=== PATIENT | male | born 1980 | race African-American/Black ===

== ENCOUNTER 2021-08-02 04:36 | Emergency (ER) | payer OTHER, SELFPAY ==
[2021-08-02] MEDS ORDERED: Aspirin Chewable 81 MG TAB ONE ×2 (04:57→04:58)
[2021-08-02 05:10] LABS: ALT (SGPT) 37 U/L (8-55); AST (SGOT) 24 U/L (5-34); Albumin 4.4 g/dL (3.5-5.0); Alkaline Phosphatase 64 U/L (40-110); Anion Gap 12 mmol/L (10-20); BUN (Urea Nitrogen) 21 mg/dL (8.9-20.6); Bilirubin, Total 0.9 mg/dL (0.2-1.2); Calc. Creatinine Clearance 0 mL/min (70-130); Calcium 9.4 mg/dL (7.8-10.44); Carbon Dioxide 22 mmol/L (22-29); Chloride 107 mmol/L (98-107); Globulin 2.9 g/dL (2.4-3.5); Glucose 115 mg/dL (70-105); Protein, Total 7.3 g/dL (6.0-8.3); Sodium 137 mmol/L (136-145)
[2021-08-02 06:04] LABS: #Eosinphils 0.2 10x3/uL (0.0-0.5); #Monocytes 0.9 10x3/uL (0.0-1.1); #Neutrophils 3.9 10x3/uL (1.5-8.4); %Basophils 0.5 % (0.0-2.0); %Lymphocytes 34.4 % (18.0-47.0); %Monocytes 11.6 % (0.0-10.0); %Neutrophils 51.1 % (40.0-75.0); Hemoglobin 13.3 g/dL (13.5-17.5); Mean Corpuscular HGB CONC 32.1 g/dL (32.0-36.0); Mean Corpuscular Hemoglobin 27.7 pg (27.0-33.0); Mean Corpuscular Volume 86.3 fl (81.2-95.1); Platelet Count 282 10x3/uL (150-450); RBC Distribution Width 13.8 % (11.5-14.5); White Blood Cell (WBC) Count 7.7 10x3/uL (3.5-10.5)
[2021-08-02 07:25] LABS: Troponin I Less than 0.010 ng/mL (< 0.028)
[2021-08-02 08:17] LABS: HIV (1/2) Antibody/Antigen Non-Reactive (NonReactive); HIV 1/2 INDEX 0.06 S/CO (<1.00)
== END 2021-08-02 08:35 | disposition home or self-care (01) ==
LOC: CSHERS 04:36
DX: R07.2 Precordial pain (principal); I10 Essential (primary) hypertension; F17.210 Nicotine dependence, cigarettes, uncomplicated
CPT/HCPCS: 36415; 71045; 80053; 84484; 85025; 87389; 93005

== ENCOUNTER 2022-07-01 02:00 | Emergency (ER) | payer SELFPAY ==
[2022-07-01] MEDS ORDERED: Ketorolac Tromethamine 30 MG/ML VIAL ONE (02:34)
== END 2022-07-01 02:36 | disposition home or self-care (01) ==
LOC: CSHERS 02:00
DX: K03.81 Cracked tooth (principal)
CPT/HCPCS: 96372; 99282; J1885

== ENCOUNTER 2022-12-25 21:45 | Emergency (ER) | payer SELFPAY | END 2022-12-25 22:39 | disposition left against medical advice (07) | LOC: CSHERS 21:45 | DX: R41.82 Altered mental status, unspecified (principal) | CPT/HCPCS: 99284 ==

== ENCOUNTER 2022-12-28 18:28 | Emergency (ER) | payer SELFPAY | END 2022-12-28 18:58 | disposition home or self-care (01) | LOC: CSHERS 18:28 | DX: F16.129 Hallucinogen abuse with intoxication, unspecified (principal) | CPT/HCPCS: 99283 ==